=== PATIENT | female | born 1980 | race Caucasian/White ===

== ENCOUNTER 2021-01-23 05:18 | Day surgery (SDC) | payer OTHER ==
[2021-01-23] MEDS ORDERED: Lactated Ringers 1,000 ML IV ONE (05:53)
[2021-01-23] MEDS ORDERED: Cyanocobalamin (Vitamin B12) 1,000 MCG/ML SDV IM ONE (05:55)
[2021-01-23] MEDS ORDERED: MVI, Adult with Vitamin K 10 ML, Thiamine 200 MG, Chromium/Copper/Mang/Selen/Zn 1 ML in... IV ONE ×8 (07:00→07:30)
[2021-01-23] MEDS ORDERED: Glycopyrrolate 0.2 MG/ML 2 ML SDV IVPUSH ONE (07:00)
[2021-01-23] MEDS ORDERED: Midazolam 1 MG/ML 2 ML SDV ONE (07:13)
[2021-01-23] MEDS ORDERED: fentaNYL 100 MCG/2 ML SDV ONE (07:13)
[2021-01-23] MEDS ORDERED: Propofol 200 MG/20 ML SDV ONE (07:13)
[2021-01-23] MEDS ORDERED: MVI, Adult with Vitamin K 10 ML, Thiamine 200 MG, Zinc/Copper/Manganese/Selenium 1 ML i... IV ONE ×4 (07:30)
--- NOTE | 2021-01-30 13:10 | OR ---
DATE OF PROCEDURE: 01/23/2021 SURGEON: Aly Dial MD PREOPERATIVE DIAGNOSIS: Weight regain status post Giselle-en-Y gastric bypass. POSTOPERATIVE DIAGNOSIS: Weight regain status post Giselle-en-Y gastric bypass with: 1. Very large pouch and gastrojejunostomy. 2. Coexisting gastrogastric fistula. OPERATIVE PROCEDURE: Upper gastrointestinal endoscopy with biopsies of gastric pouch for CLOtest. ANESTHESIA: IV sedation. INDICATION FOR PROCEDURE: This is a 40-year-old status post Giselle-en-Y gastric bypass in 2007 in [facility]. She presents now with significant weight regain. She presents today for a revisional procedure and is to undergo an upper endoscopy for evaluation of anatomy and possible correctable problems related to the gastric bypass. Potential risks including bleeding and perforation were discussed, and the patient wishes to proceed. DETAILS OF PROCEDURE: The patient was taken to the operating room and placed in a left lateral decubitus position. IV sedation was administered after which the upper GI endoscope was passed orally through the length of the esophagus into the gastric pouch and through the gastrojejunostomy roughly 20 cm into the Giselle limb. Findings included normal hypopharynx, larynx, upper esophageal sphincter, and esophageal body. The esophageal body was unremarkable. Near the level of the gastric pouch, this was noted to be very large measuring around 11 cm from this gastrojejunostomy to the esophagogastric junction, and the gastrojejunostomy was likewise very wide, around 5 cm. The patient also had a small gastrogastric fistula medially posteriorly located at the level just above the gastrojejunostomy. All of this has obviously led to significant restriction and the patient's weight regain. Biopsies were then obtained from the gastric pouch and sent for CLOtest for H pylori. Minimal bleeding from the biopsy sites was seen, and the procedure was then concluded. A letter will be sent to insurance regarding prior authorization for a revisional procedure. Aly Dial MD /[id number]
== END 2021-01-23 09:30 | disposition home or self-care (01) ==
LOC: JP.SDS 05:18
PROVIDERS: ATTEND Surgery
DX: K31.6 Fistula of stomach and duodenum (principal); K31.4 Gastric diverticulum; R63.5 Abnormal weight gain; Z98.84 Bariatric surgery status; Z93.4 Other artificial openings of gastrointestinal tract status
CPT/HCPCS: 43239; 87081; J2250; J2704; J3010; J3420; J3490; J7120

== ENCOUNTER 2021-04-28 09:15 | Inpatient (IN) | payer OTHER ==
[~2021-04-28 09:15] MED LIST: Acetaminophen 500 MG Tab PO ONE; Celecoxib 200 MG Cap PO ONE; Dextrose 5%-Lactated Ringers 1,000 ML IV SCH; Gabapentin 300 MG Cap PO ONE; Meropenem 500 MG SDV ONE; Scopolamine 1.5 MG Transdermal Patch TOP ONE; cefOXitin 2 GM Vial ONE; cefOXitin 2 GM in Sodium Chloride 0.9% 50 ML IV ONE
[2021-04-28] MEDS ORDERED: fentaNYL 250 MCG/5 ML SDV ONE ×2 (09:56→11:42)
[2021-04-28] MEDS ORDERED: Glycopyrrolate 0.2 MG/ML 5 ML MDV ONE (09:57)
[2021-04-28] MEDS ORDERED: Succinylcholine 200 MG/10 ML MDV ONE (09:57)
[2021-04-28] MEDS ORDERED: Ondansetron 4 MG/2 ML SDV ONE (09:57)
[2021-04-28] MEDS ORDERED: Rocuronium 50 MG/5 ML Vial ONE ×2 (09:57→12:09)
[2021-04-28] MEDS ORDERED: Propofol 200 MG/20 ML SDV ONE (09:57)
[2021-04-28] MEDS ORDERED: Dexamethasone 4 MG/ML SDV ONE (09:57)
[2021-04-28] MEDS ORDERED: Neostigmine Methylsulfate 1 MG/ML 5 ML Syringe ONE (09:57)
[2021-04-28] MEDS ORDERED: Ketamine 500 MG/5 ML MDV IV SCH (10:00)
[2021-04-28] MEDS ORDERED: Ketamine 19 MG in Sodium Chloride 0.9% 19.81 ML IV SCH (10:00)
[2021-04-28] MEDS ORDERED: Naloxone 0.4 MG/ML SDV IVPUSH PRN (12:44)
[2021-04-28] MEDS ORDERED: Naloxone 0.4 MG/ML SDV IV PRN (13:00)
[2021-04-28] MEDS: HYDROmorphone/Normal Saline 15 MG/30 ML PCA IV PRN (13:01)
[2021-04-28] MEDS ORDERED: Sodium Chloride 0.9% 0 ML ONE (13:16)
[2021-04-28] MEDS ORDERED: Meropenem 500 MG SDV ONE (13:16)
[2021-04-28] MEDS ORDERED: fentaNYL 100 MCG/2 ML SDV ONE (14:49)
[2021-04-28] MEDS ORDERED: Lactated Ringers 1,000 ML IV SCH (15:45)
[2021-04-28] MEDS ORDERED: Labetalol 20 MG/4 ML Syringe IVPUSH PRN (16:00)
[2021-04-28] MEDS ORDERED: Glucagon,Human Recombinant 1 MG Vial IM PRN (16:00)
[2021-04-28] MEDS ORDERED: Acetaminophen 500 MG Tab PO PRN (16:00)
[2021-04-28] MEDS ORDERED: Ondansetron 4 MG/2 ML SDV IVPUSH PRN (16:00)
[2021-04-28] MEDS ORDERED: diphenhydrAMINE 50 MG/ML SDV IVPUSH PRN (16:00)
[2021-04-28] MEDS ORDERED: Metoclopramide 10 MG/2 ML SDV IVPUSH PRN (16:00)
[2021-04-28] MEDS ORDERED: Insulin Lispro 100 Unit/ML 3 ML KwikPen SUBCUT SCH (16:00)
[2021-04-28] MEDS ORDERED: 50% Dextrose in Water 50 ML Syringe IVPUSH PRN (16:00)
[2021-04-28] MEDS: Dextrose 5%-Lactated Ringers 1,000 ML IV SCH (16:16)
[2021-04-28] MEDS ORDERED: MVI, Adult with Vitamin K 10 ML, Thiamine 200 MG, Zinc/Copper/Manganese/Selenium 1 ML i... IV SCH ×4 (17:00)
[2021-04-28] MEDS ORDERED: Pantoprazole 40 MG Vial IVPUSH SCH (17:00)
[2021-04-28] MEDS: metFORMIN 500 MG Tab PO SCH (17:20)
[2021-04-28] MEDS: cefOXitin 2 GM in Sodium Chloride 0.9% 50 ML IV SCH ×2 (17:20→23:37)
[2021-04-28] MEDS: Acetaminophen 500 MG Tab PO SCH (17:22)
[2021-04-28] MEDS: hydrOXYzine HCL 100 MG/2 ML SDV IM PRN (17:45)
[2021-04-28] MEDS ORDERED: LORazepam 2 MG/ML SDV IVPUSH PRN (19:29)
[2021-04-28] MEDS: Cyclobenzaprine 10 MG Tab PO PRN (19:33)
[2021-04-28] MEDS ORDERED: Acetaminophen 1,000 MG in Premix Bag 1 BAG IV ONE (20:14)
[2021-04-28] MEDS: Topiramate 100 MG Tab PO SCH (20:34)
[2021-04-28] MEDS: Gabapentin 300 MG Cap PO SCH (20:36)
[2021-04-28] MEDS: rOPINIRole 0.5 MG Tab PO SCH (20:36)
[2021-04-28] MEDS: Heparin Sodium 5,000 Units/ML Vial SUBCUT SCH (20:36)
[2021-04-29] MEDS: Acetaminophen 500 MG Tab PO SCH ×2 (02:04→08:06)
[2021-04-29] MEDS ORDERED: Iopamidol 612 MG/ML 50 ML SDV PO PRN (03:50)
[2021-04-29] MEDS: cefOXitin 2 GM in Sodium Chloride 0.9% 50 ML IV SCH ×2 (04:47→10:11)
[2021-04-29] MEDS: Dextrose 5%-Lactated Ringers 1,000 ML IV SCH (04:49)
[2021-04-29] MEDS ORDERED: Dextrose 5%-Lactated Ringers 1,000 ML IV SCH (08:00)
[2021-04-29] MEDS: metFORMIN 500 MG Tab PO SCH ×2 (08:04→17:04)
[2021-04-29] MEDS: Topiramate 100 MG Tab PO SCH ×2 (08:06→20:44)
[2021-04-29] MEDS: Gabapentin 300 MG Cap PO SCH ×3 (08:06→20:45)
[2021-04-29] MEDS: Escitalopram 20 MG Tab PO SCH (08:06)
[2021-04-29] MEDS: Celecoxib 200 MG Cap PO SCH ×2 (08:07→20:45)
[2021-04-29] MEDS: Heparin Sodium 5,000 Units/ML Vial SUBCUT SCH ×2 (08:07→20:45)
[2021-04-29] MEDS: SCOPOLAMINE PATCH CHECK TOP SCH (08:10)
[2021-04-29] MEDS: HYDROmorphone/Normal Saline 15 MG/30 ML PCA IV PRN ×2 (11:26→12:16)
[2021-04-29] MEDS ORDERED: Acetaminophen 1,000 MG in Premix Bag 1 BAG IV ONE (11:30)
[2021-04-29] MEDS ORDERED: Ondansetron 4 MG Tab.DIS PO PRN (14:54)
[2021-04-29] MEDS ORDERED: LORazepam 0.5 MG Tab PO PRN (14:54)
[2021-04-29] MEDS: Acetaminophen/HYDROcodone 325-5 MG Tab PO PRN ×2 (15:30→20:24)
[2021-04-29] MEDS ORDERED: MVI, Adult with Vitamin K 10 ML, Thiamine 200 MG, Zinc/Copper/Manganese/Selenium 1 ML i... IV SCH ×4 (16:00)
[2021-04-29] MEDS: Cyclobenzaprine 10 MG Tab PO PRN (20:28)
[2021-04-29] MEDS: hydrOXYzine HCL 100 MG/2 ML SDV IM PRN (20:29)
[2021-04-29] MEDS: rOPINIRole 0.5 MG Tab PO SCH (20:46)
[2021-04-30] MEDS: Acetaminophen/HYDROcodone 325-5 MG Tab PO PRN ×4 (01:01→12:24)
[2021-04-30] MEDS: Cyclobenzaprine 10 MG Tab PO PRN (04:47)
[2021-04-30] MEDS: Gabapentin 300 MG Cap PO SCH (08:21)
[2021-04-30] MEDS: Celecoxib 200 MG Cap PO SCH (08:21)
[2021-04-30] MEDS: Heparin Sodium 5,000 Units/ML Vial SUBCUT SCH (08:21)
[2021-04-30] MEDS: Escitalopram 20 MG Tab PO SCH (08:22)
[2021-04-30] MEDS: metFORMIN 500 MG Tab PO SCH (08:22)
[2021-04-30] MEDS: Topiramate 100 MG Tab PO SCH (08:22)
[2021-04-30] MEDS ORDERED: Cyanocobalamin (Vitamin B12) 1,000 MCG/ML SDV IM ONE (09:00)
[2021-04-30] MEDS: SCOPOLAMINE PATCH CHECK TOP SCH (09:04)
--- NOTE | 2021-05-01 10:28 | CR ---
[facility] HISTORY: Postbariatric surgery FINDINGS: Patient swallowed water-soluble contrast. Upright views of the abdomen show no evidence of extravasation or obstruction. There is some holdup in the distal esophagus and gastric remanent. IMPRESSION: Status post bariatric surgery No extravasation or obstruction seen Mild holdup in the distal esophagus and gastric remanent may be due to some spasm.
--- NOTE | 2021-05-02 13:00 | PN ---
DATE OF SERVICE: 04/29/2021 The patient is afebrile with stable vital signs. She is postop day 1 from a revision of Giselle-en-Y gastric bypass including takedown of the gastrogastric fistula and debridement of some peripancreatic and necrotic soft tissue. Overnight, pain control was initially little bit problematic. This appears to be quite good right now, and the patient is up and moving fairly independently. HEAD IRRIGATOR is working satisfactorily, and along with Tylenol, we will start Celebrex today as well. Continue the HEAD IRRIGATOR going for today. Her upper GI x-ray looked good. side of caution with the revisional anastomosis. We will stick with the step-1 diet today and go over to step-2 diet probably tomorrow and switch probably over to exclusively oral pain medication. Aly Dial MD /[id number]
--- NOTE | 2021-05-02 13:12 | OR ---
DATE OF PROCEDURE: 04/28/2021 SURGEON: Aly Dial MD PREOPERATIVE DIAGNOSIS: Weight regain, status post Giselle-en-Y gastric bypass with a large gastric pouch and gastrogastric fistula. POSTOPERATIVE DIAGNOSES: 1. Weight regain, status post Giselle-en-Y gastric bypass with a large gastric pouch and gastrogastric fistula. 2. 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 OPERATIVE PROCEDURES: Diagnostic laparoscopy converted to laparotomy with: 1. Revision of Giselle-en-Y gastric bypass including division of gastrogastric fistula (56237). 2. Debridement of peripancreatic soft tissue necrosis (86918). ANESTHESIA: General. CLINICAL DATA COORDINATOR: Terra Fan PA-C INDICATIONS FOR PROCEDURE: This is a 41-year-old status post previous Giselle-en-Y gastric bypass done in [facility]. She initially had relatively modest weight loss and now has had problems with weight regain. Recent endoscopy showed very large gastric pouch along with development of a gastrogastric fistula. Plan is to proceed with a laparoscopic or if necessary open revision of the gastric bypass with division of the gastrogastric fistula. We would also rearrange the limb length somewhat to facilitate more weight loss. The potential risks of the procedure including bleeding, infection, leaks from any GI tract closures, development of stricture formation at the newly formed gastrojejunostomy, problems with frequent loose bowel movements or nutritional complications related to the alteration of the limb lengths potentially requiring secondary revision along with the remote possibility of cardiopulmonary, septic, or hemorrhagic complications leading to were discussed, and the patient wishes to proceed. DETAILS OF PROCEDURE: The patient was taken to the operating room. After general endotracheal anesthesia was induced, the patient in lithotomy position and Long catheter inserted and the abdomen prepped and draped. 15 cm inferior and 5 cm left of the xiphoid process, a transverse incision was made and the peritoneal cavity entered under direct vision with an Optiview trocar and inflated to 15 mmHg pressure of CO2. Laparoscope was then reinserted. No underlying trocar insertion site injuries were seen. Following this, 5 mm trocars were placed in the left subcostal area and in the upper midline. The liver was retracted anteriorly, and on palpation of the area around the gastric pouch found it to be very hard and densely fibrotic indicating significant likelihood of inflammatory adherence to underlying structures such as the aorta, pancreas, or splenic artery and/or vein. Given this, it was felt safest approach would be to convert to an open approach which allowed more of a manual based dissection and more rapid response should there be intraoperative complications such as bleeding. Given this, the trocars were removed and the peritoneal cavity deflated. A midline incision from the xiphoid to roughly 2 to 3 fingerbreadths above the umbilicus was made and carried down through the full-thickness of the abdominal wall. On entering the peritoneal cavity, no additional major problems were noted. The left triangular ligament of the liver was divided allowing retraction of the left lobe of liver medially. This allowed adequate exposure. A 32-[place] tube was placed orally per anesthesia across the esophagogastric junction into the gastric pouch and from there roughly 20 cm into the Giselle limb. This allowed an initial template for dissection. The Giselle limb was then divided more or less flush with the gastrojejunostomy and then dissection continued superiorly. The area of the fistula formation between the gastric pouch and the previously bypassed stomach was noted to be more or less directly over the body of the pancreas and the splenic artery. This was densely fibrotic and there appeared to be both acute and chronic inflammation with associated peripancreatic fat necrosis. The latter was gradually debrided as the dissection of the pancreas and splenic artery were accomplished with a combination of some blunt and cautery dissection. Once the complex of the gastrojejunostomy, gastric pouch, and attached bypassed portion of the stomach were elevated, some additional peripancreatic fat necrosis was debrided and the gastric pouch was then divided flush with the previously bypassed stomach with a CARLOS black load. This then allowed further dissection more superiorly at a point just below the esophagogastric junction, and it was felt that there was reasonably good tissue for secondary anastomosis in terms of significant decrease in the ambient amount of inflammation. The orogastric tube was then removed and the stomach divided at a point just below the esophagogastric junction, perhaps within 1 cm or so of that area based on external landmarks. This was accomplished with a CARLOS black load. At this point, the small bowel limbs were examined. The Giselle limb was noted to be around 70 cm at this point and the biliopancreatic limb quite short, only in the range of 60 cm. Given this, the Giselle limb was then divided off flush with the jejunojejunostomy and the limb lengths were marked out further. Eventually, the patient had re-establishment of the Giselle-en- Y configuration at a point 330 cm proximal to the ileocecal valve giving the patient a total alimentary length of 400 cc with predominance of this being in common limb. The small bowel distally was noted to be fairly large and quite healthy in appearance, so this extent of the alimentary length appeared to be appropriate even with the reduction of the patient's pouch size and this also then gave a biliopancreatic limb of 270 cm which should provide some additional long-term metabolic benefit to the patient. The new anastomosis was then accomplished with an internal firing of the Endo-CARLOS 60 mm stapler, followed by closure of the transversus opening with a CARLOS load as well. The angles of anastomosis were then reinforced with 3-0 Vicryl stitch and the mesenteric defect then closed with a running 2-0 silk stitch, the latter being used to provide some permanency of the mesenteric closure. The Giselle limb at this point easily then came up to the newly divided proximal pouch without tension via an antecolic approach with the more distal jejunojejunostomy actually being quite a bit more mobile than the previous jejunojejunostomy. The anvil of a 25 mm EEA stapler was attached to Josephine sump tube. The latter was brought down through the mouth and taken out a small opening in the gastric pouch allowing the anvil likewise to be pulled down to within the gastric pouch. Divided end of the Giselle limb was then opened and the main body of the EEA stapler passed few centimeters into the Giselle limb, brought up to the anvil, united with it thus creating the gastrojejunostomy. Upon removal of the stapler, double donuts of mucosa were noted within it and the small bowel was closed off with a vascular staple line. The combination of gastrojejunostomy was opened only roughly 3 cm additional small-bowel length being lost. The gastrojejunostomy was then reinforced with some 3-0 Vicryl seromuscular stitch along with fibrin sealant and the mesentery underlying this as a cross over the transverse colon and omentum was reinforced with some interrupted 3-0 Vicryl stitch to close off that mesenteric defect. At this point, no further problems were noted. The abdomen was irrigated with antibiotic- containing saline solution. Noam-Lyons drain was then placed through the previously used left lateral trocar site. This was positioned across the area of the pancreatic region in the event there might be a pancreatic fistula development, although that capsule appeared to be grossly intact, just simply involving quite a bit of scarring and then brought up adjacent to the gastrojejunostomy from there into the splenic fossa. After the initial trocar placement at the beginning of the procedure, bilateral transversus abdominis plane blocks had been placed and the midline fascia was then approximated with #2 Vicryl stitch. At this point, subcutaneous tissue was approximated with 3 layers of 3 and 4- 0 Vicryl stitch and the skin with marisela. Prior to closure, the fascia was anesthetized with 1% lidocaine mixed with Marcaine as well and the patient was taken to the recovery room in satisfactory condition. Physician campus administrative assistant, Terra Fan, played an essential role in assisting in this case, helping to position the patient, retract structures as needed, as well as suturing and cutting sutures when indicated. Her presence improved patient safety and decreased the operative time. Aly Dial MD /[id number]
--- NOTE | 2021-05-02 13:48 | DISCH ---
FINAL DIAGNOSES: 1. Weight regain, status post Giselle-en-Y gastric bypass with large gastric pouch and gastrogastric fistula. 2. Gastrogastric fistula involved with inflammatory adherence to body of pancreas and splenic artery. SECONDARY DIAGNOSES: 1. Fibromyalgia. 2. History of migraines. 3. History of vitamin D deficiency. 4. History of restless legs syndrome. 5. Rheumatoid arthritis. 6. Depression and anxiety. 7. Family history of Morales syndrome. OPERATIVE PROCEDURES: Done on 04/28, diagnostic laparoscopy converted to laparotomy with: 1. Revision of Giselle-en-Y gastric bypass including division of gastrogastric fistula. 2. Debridement of peripancreatic soft tissue necrosis. SUMMARY: This is a 41-year-old female presenting with substantial weight regain, status post previous Giselle-en-Y gastric bypass done at [place] in 2010. She presents now with recent endoscopic finding of a very large gastric pouch along with gastrogastric fistula. On the day of surgery, the patient underwent initial diagnostic laparoscopy of this that showed intense inflammation in the area around the gastric pouch, gastrojejunostomy, and was converted to an open laparotomy when the above procedures were completed. Postoperatively, she has had no major problems. She is presently tolerating a liquid diet and [place] for pain in addition to Celebrex and some additional Tylenol. MEDICATIONS ON DISCHARGE: Will include all those the patient was on preoperatively other than the ferrous sulfate we will hold for 2 weeks otherwise vitamins and other supplements being held until after the first appointment which will be with Terra Fan at [facility] on 05/08/2021. Prescriptions in addition to her usual prescriptions include [place] 5/325 one tablet q.4 hours p.r.n. pain, Atarax 50 mg p.o. q.4 hours p.r.n. pain, and the extra Tylenol as noted above, not to exceed 4000 mg in a 24-hour period. She is to stay on a step-2 liquid diet until her week appointment and otherwise, we will have Aquacel dressing that she will be instructed to take off on Saturday. /[id number]
== END 2021-04-30 13:05 | disposition home or self-care (01) | DRG 327 ==
LOC: EDSTATUS 09:15 → JP.SDS 09:19 → JP.SDSSCHI 09:19 → JP.MS 14:40
PROVIDERS: ADMIT Surgery; ATTEND Surgery
PROC: 0D160ZA Bypass Stomach to Jejunum, Open Approach (ICD-10-PCS; principal; 2021-04-28)
PROC: 0DJ64ZZ Inspection of Stomach, Percutaneous Endoscopic Approach (ICD-10-PCS; 2021-04-28)
PROC: 0FBG0ZZ Excision of Pancreas, Open Approach (ICD-10-PCS; 2021-04-28)
DX: K31.6 Fistula of stomach and duodenum (principal); Z68.41 Body mass index [BMI] 40.0-44.9, adult; G43.909 Migraine, unspecified, not intractable, without status migrainosus; E55.9 Vitamin D deficiency, unspecified; G25.81 Restless legs syndrome; M06.9 Rheumatoid arthritis, unspecified; F41.9 Anxiety disorder, unspecified; G62.9 Polyneuropathy, unspecified; F32.A Depression, unspecified; F43.10 Post-traumatic stress disorder, unspecified; K86.89 Other specified diseases of pancreas; E66.9 Obesity, unspecified; Z87.440 Personal history of urinary (tract) infections; Z98.84 Bariatric surgery status; Z53.31 Laparoscopic surgical procedure converted to open procedure; Z98.890 Other specified postprocedural states; Z87.891 Personal history of nicotine dependence; Z79.899 Other long term (current) drug therapy
CPT/HCPCS: 36415; 74240; 74240-26; 82947; 84703; 86850; 86900; 86901; 88307; A9270-GY; C9113; J0131; J0171; J0330; J0694; J1100; J1170; J1644; J2185; J2405; J2704; J2710; J2795; J3010; J3410; J3411; J3420; J3490; J7120; J7121; Q9967